=== PATIENT | female | born 1960 | race Caucasian/White ===

== ENCOUNTER → 2023-06-09 16:16 | Outpatient (REF) | payer OTHER, SELFPAY | LOC: WDC 16:16 | PROVIDERS: ATTENDING PHYSICIAN Nurse Practitioner Adult Health | DX: Z12.31 Encounter for screening mammogram for malignant neoplasm of breast (principal) | CPT/HCPCS: 77063; 77067 ==

== ENCOUNTER → 2024-06-07 14:45 | Outpatient (REF) | payer MEDICARE, SELFPAY | LOC: HWRAD 14:45 | PROVIDERS: ATTENDING PHYSICIAN Nurse Practitioner Adult Health | DX: M54.2 Cervicalgia (principal); M25.511 Pain in right shoulder; M25.512 Pain in left shoulder; Z91.81 History of falling; R26.2 Difficulty in walking, not elsewhere classified | CPT/HCPCS: 72040; 73030; 73522 ==

== ENCOUNTER → 2024-06-11 09:43 | Outpatient (REF) | payer MEDICARE, SELFPAY | LOC: WDC 09:43 | PROVIDERS: ATTENDING PHYSICIAN Nurse Practitioner Adult Health | DX: Z12.31 Encounter for screening mammogram for malignant neoplasm of breast (principal); Z00.00 Encounter for general adult medical examination without abnormal findings; M85.80 Other specified disorders of bone density and structure, unspecified site; Z78.0 Asymptomatic menopausal state | CPT/HCPCS: 77063; 77067; 77080 ==

== ENCOUNTER → 2024-12-26 09:51 | Outpatient (REF) | payer MEDICARE, SELFPAY | LOC: RAD 09:51 | PROVIDERS: ATTENDING PHYSICIAN Nurse Practitioner Adult Health | DX: Z91.81 History of falling (principal); M25.552 Pain in left hip | CPT/HCPCS: 73502 ==